=== PATIENT | male | born 1945 | race Caucasian/White ===

== ENCOUNTER → 2016-04-20 | Outpatient (CLI) | payer MEDICARE, OTHER ==
[~2016-04-20] MED LIST: ASPIRIN 81M81 MG/TA2 PO; CENTRUM SILVER1 CTB PO; FOLIC ACID 11 MG/TA1 PO; GLUCOPHAGE1000 MG PO; GLUCOTROL 5M5 MG/TAB PO; LEVOFLOXACIN500 MG PO; LIPITOR20 MG PO; REFRESH CELLUVI1 SOL OP; STOOL SOFTENER100 M1 PO; SYNTHROID0.2 MG/TAB PO; UROXATRAL10 M1 PO; ZESTRIL10 MG PO; ZOCOR20 MG PO; [UNRECOGNIZED DRUG - OTHER] PO
== END ==
LOC: SUN.DIA 10:30
DX: E11.9 Type 2 diabetes mellitus without complications (principal); Z79.84 Long term (current) use of oral hypoglycemic drugs; Z68.31 Body mass index [BMI] 31.0-31.9, adult; E66.9 Obesity, unspecified; Z71.3 Dietary counseling and surveillance; E78.5 Hyperlipidemia, unspecified; I10 Essential (primary) hypertension

== ENCOUNTER → 2016-07-20 | Outpatient (CLI) | payer MEDICARE, OTHER | LOC: SUN.DIA 11:45 | DX: E11.65 Type 2 diabetes mellitus with hyperglycemia (principal); E66.9 Obesity, unspecified; Z68.31 Body mass index [BMI] 31.0-31.9, adult; Z71.3 Dietary counseling and surveillance; E78.5 Hyperlipidemia, unspecified; I10 Essential (primary) hypertension; E03.9 Hypothyroidism, unspecified; G47.30 Sleep apnea, unspecified ==

== ENCOUNTER → 2017-01-18 | Outpatient (CLI) | payer MEDICARE, OTHER | LOC: SUN.DIA 09:33 | DX: E11.9 Type 2 diabetes mellitus without complications (principal); E78.5 Hyperlipidemia, unspecified; I10 Essential (primary) hypertension; E66.9 Obesity, unspecified; Z68.32 Body mass index [BMI] 32.0-32.9, adult; Z71.3 Dietary counseling and surveillance | CPT/HCPCS: G0108 ==

== ENCOUNTER → 2017-07-19 | Outpatient (CLI) | payer MEDICARE, OTHER | LOC: SUN.DIA 09:32 | DX: E11.9 Type 2 diabetes mellitus without complications (principal); E78.5 Hyperlipidemia, unspecified; I10 Essential (primary) hypertension; E66.9 Obesity, unspecified; Z68.31 Body mass index [BMI] 31.0-31.9, adult; Z71.3 Dietary counseling and surveillance; Z87.891 Personal history of nicotine dependence | CPT/HCPCS: G0108 ==

== ENCOUNTER 2017-09-28 14:39 | Day surgery (SDC) | payer MEDICARE, OTHER ==
[~2017-09-28] VITALS: Ht 185.4 cm; Wt 106.8 kg
[2017-09-28 15:18] VITALS: BP 132/55; PULSE 76; TEMP 98.1
[2017-09-28] MEDS ORDERED: [UNRECOGNIZED DRUG - OTHER] (15:23)
[2017-09-28] MEDS ORDERED: FOLIC ACID 40400 MCG PO (15:25)
[2017-09-28] MEDS ORDERED: FLONASEALLERGY NS (15:26)
[2017-09-28] MEDS ORDERED: PRINIVIL40 MG PO (15:27)
[2017-09-28] MEDS ORDERED: RELAFEN 50500 MG/TAB PO (15:28)
[2017-09-28] MEDS ORDERED: OMEGA-3 FISH1000 MG PO (15:29)
[2017-09-28] MEDS ORDERED: PRESERVISION1 SGL PO (15:30)
[2017-09-28] MEDS ORDERED: REFRESH TEARS 330 ML OP (15:31)
[2017-09-28] MEDS ORDERED: SYNTHROID0.075 MG/T PO (15:32)
[2017-09-28 17:42] VITALS: BP 115/59; PULSE 82; TEMP 98
[2017-09-28 17:57] VITALS: BP 132/55; PULSE 79
[2017-09-28] MEDS ORDERED: NORCO 325 MG-51 TAB PO (18:05)
[2017-09-28] MEDS ORDERED: PYRIDIUM 100MG100 MG PO (18:05)
[2017-09-28 18:12] VITALS: BP 143/61; PULSE 82
[2017-09-28 18:34] VITALS: BP 143/61; PULSE 72
[2017-09-28 18:56] VITALS: BP 137/65; PULSE 72
== END 2017-09-28 19:13 | disposition home or self-care (01) ==
LOC: SDCO 14:39
DX: N30.80 Other cystitis without hematuria (principal); N21.0 Calculus in bladder; E11.9 Type 2 diabetes mellitus without complications; I25.10 Atherosclerotic heart disease of native coronary artery without angina pectoris; I10 Essential (primary) hypertension; G47.30 Sleep apnea, unspecified; E03.9 Hypothyroidism, unspecified; Z79.82 Long term (current) use of aspirin; Z79.84 Long term (current) use of oral hypoglycemic drugs; Z87.891 Personal history of nicotine dependence; Z86.73 Personal history of transient ischemic attack (TIA), and cerebral infarction without residual deficits; Z83.3 Family history of diabetes mellitus; Z82.49 Family history of ischemic heart disease and other diseases of the circulatory system
CPT/HCPCS: J0690; J1100; J2405; J2704; J3010; J7030

== ENCOUNTER → 2017-12-20 | Outpatient (CLI) | payer MEDICARE, OTHER ==
[~2017-12-20] MED LIST changes: +FLONASEALLERGY NS; +FOLIC ACID 40400 MCG PO; +NORCO 325 MG-51 TAB PO; +OMEGA-3 FISH1000 MG PO; +PRESERVISION1 SGL PO; +PRINIVIL40 MG PO; +PYRIDIUM 100MG100 MG PO; +REFRESH TEARS 330 ML OP; +RELAFEN 50500 MG/TAB PO; +SYNTHROID0.075 MG/T PO; +[UNRECOGNIZED DRUG - OTHER]
== END ==
LOC: COL.VAS 07:55
DX: I07.1 Rheumatic tricuspid insufficiency (principal)

== ENCOUNTER → 2017-12-29 | Outpatient (CLI) | payer MEDICARE, OTHER | LOC: COL.RAD 08:54 | DX: Z13.6 Encounter for screening for cardiovascular disorders (principal) ==

== ENCOUNTER → 2018-01-17 | Outpatient (CLI) | payer MEDICARE, OTHER | LOC: SUN.DIA 09:27 | DX: E11.9 Type 2 diabetes mellitus without complications (principal); E78.5 Hyperlipidemia, unspecified; I10 Essential (primary) hypertension; E66.9 Obesity, unspecified | CPT/HCPCS: G0108 ==

== ENCOUNTER 2018-01-24 10:13 | Day surgery (SDC) | payer MEDICARE, OTHER ==
[2018-01-24] VITALS (212 sets, daily range): BP systolic 141–172; BP diastolic 74–90; PULSE 67–88; TEMP 98–98.5; O2SAT 76–100
[~2018-01-24] VITALS: Ht 185.6 cm; Wt 108.6 kg
[2018-01-24 10:58] LABS: HEMATOCRIT 41.4 % (42.0-52.0); HEMOGLOBIN 13.8 g/dl (13.5-18.0); MEAN CELL VOLUME 89 fl (80.0-100.0); MEAN CORPUSCULAR HEMOGLOBIN 30 pg (27.0-31.0); MEAN CORPUSCULAR HGB CONC 33 g/dl (33.0-37.0); MEAN PLATELET VOLUME 9.2 fl (7.4-10.4); PLATELET COUNT 187 K/mm3 (130-400); RED BLOOD COUNT 4.65 M/mm3 (4.20-5.60); REDCELL DISTRIBUTION WIDTH-CV 13.2 % (11.5-14.5)
[2018-01-24] MEDS ORDERED: SYNTHROID0.2 MG/TAB (11:05)
[2018-01-24 11:07] LABS: PROTHROMBIN TIME 10.9 SECONDS (9.7-12.8)
[2018-01-24 11:08] LABS: CALCIUM 8.8 mg/dL (8.4-10.2); CREATININE, serum 0.88 mg/dL (0.66-1.25); POTASSIUM 4.9 mmol/L (3.4-5.0)
[2018-01-25] VITALS (305 sets, daily range): BP systolic 125–144; BP diastolic 55–68; PULSE 68–79; TEMP 98–98.6; O2SAT 95–100
[2018-01-25 06:14] LABS: BASO % 0.6 % (0.0-2.0); EOS # 0.2 (0.0-0.7); EOS % 3.2 % (0-4.0); GRAN # 5.1 (1.4-6.5); GRAN % 74.6 % (42.2-75.2); HEMATOCRIT 41.2 % (42.0-52.0); HEMOGLOBIN 13.7 g/dl (13.5-18.0); LYMPH # 0.7 (1.2-3.4); LYMPH % 10.7 % (20.0-51.0); MEAN CELL VOLUME 88 fl (80.0-100.0); MEAN CORPUSCULAR HEMOGLOBIN 29 pg (27.0-31.0); MEAN CORPUSCULAR HGB CONC 33 g/dl (33.0-37.0); MEAN PLATELET VOLUME 9.5 fl (7.4-10.4); MONO # 0.7 (0.1-0.6); MONO % 10.3 % (1.7-9.3); PLATELET COUNT 191 K/mm3 (130-400); RED BLOOD COUNT 4.66 M/mm3 (4.20-5.60); REDCELL DISTRIBUTION WIDTH-CV 13.2 % (11.5-14.5)
[2018-01-25 06:32] LABS: CALCIUM 8.9 mg/dL (8.4-10.2); CREATININE, serum 0.77 mg/dL (0.66-1.25); POTASSIUM 4.2 mmol/L (3.4-5.0)
[2018-01-25] MEDS ORDERED: BRILINTA90 MG PO (09:23)
[2018-01-25] MEDS ORDERED: TOPROL XL 50MG50 MG PO (09:26)
== END 2018-01-25 11:04 | disposition home or self-care (01) ==
LOC: COL.CAR 10:13 → ICU 14:47 → COL.CAR 01-25 11:04
PROVIDERS: Internal Medicine Cardiovascular Disease
DX: I25.10 Atherosclerotic heart disease of native coronary artery without angina pectoris (principal); I49.3 Ventricular premature depolarization; R00.2 Palpitations; E11.9 Type 2 diabetes mellitus without complications; Z79.84 Long term (current) use of oral hypoglycemic drugs; Z79.899 Other long term (current) drug therapy; Z87.891 Personal history of nicotine dependence; E78.2 Mixed hyperlipidemia; Z86.73 Personal history of transient ischemic attack (TIA), and cerebral infarction without residual deficits; E07.9 Disorder of thyroid, unspecified; I10 Essential (primary) hypertension; G47.33 Obstructive sleep apnea (adult) (pediatric)
CPT/HCPCS: OP; C9600; J0583; J1644; J2250; J3010; Q9967

== ENCOUNTER → 2018-03-29 | Outpatient (CLI) | payer MEDICARE, OTHER ==
[~2018-03-29] MED LIST changes: +BRILINTA90 MG PO; +SYNTHROID0.2 MG/TAB; +TOPROL XL 50MG50 MG PO
== END ==
LOC: SUN.DIA 02-07 11:33
DX: E11.9 Type 2 diabetes mellitus without complications (principal); E66.9 Obesity, unspecified; E78.5 Hyperlipidemia, unspecified; I10 Essential (primary) hypertension
CPT/HCPCS: G0108

== ENCOUNTER 2018-04-14 08:01 | Outpatient (CLI) | payer MEDICARE, OTHER ==
[~2018-04-14] VITALS: Ht 185.5 cm; Wt 100.9 kg
[~2018-04-14 08:01] MED LIST changes: +PRINIVIL20 MG PO; -PRINIVIL40 MG PO; -[UNRECOGNIZED DRUG - OTHER]
[2018-04-14 08:53] VITALS: BP 115/66; PULSE 80; TEMP 97.7
[2018-04-14] MEDS ORDERED: EDEX IJ (09:04)
[2018-04-14] MEDS ORDERED: TOPROL XL 25MG25 MG PO (09:17)
[2018-04-14] MEDS ORDERED: NITROSTAT0.4 MG/TAB SL (09:20)
[2018-04-14] MEDS ORDERED: CEPHALEXIN500 M1 PO (09:57)
[2018-04-14 09:58] VITALS: BP 123/53; PULSE 77
--- NOTE | 2018-04-14 10:13 | NUR ---
Discharge instructions given to pt.Pt verbalizes understanding.Pt escorted out by this nurse.
== END 2018-04-14 10:14 | disposition home or self-care (01) ==
LOC: COL.CAR 08:01
DX: R55 Syncope and collapse (principal); R00.0 Tachycardia, unspecified; I25.10 Atherosclerotic heart disease of native coronary artery without angina pectoris; Z98.61 Coronary angioplasty status; E78.2 Mixed hyperlipidemia; I10 Essential (primary) hypertension; G47.33 Obstructive sleep apnea (adult) (pediatric); E11.9 Type 2 diabetes mellitus without complications; Z86.73 Personal history of transient ischemic attack (TIA), and cerebral infarction without residual deficits; Z79.82 Long term (current) use of aspirin; Z79.51 Long term (current) use of inhaled steroids; Z79.84 Long term (current) use of oral hypoglycemic drugs; Z87.891 Personal history of nicotine dependence; Z82.49 Family history of ischemic heart disease and other diseases of the circulatory system
CPT/HCPCS: 27124; C1764

== ENCOUNTER 2018-05-06 10:57 | Outpatient (RCR) | payer MEDICARE, OTHER ==
[~2018-05-06 10:57] MED LIST changes: +CEPHALEXIN500 M1 PO; +EDEX IJ; +NITROSTAT0.4 MG/TAB SL; +TOPROL XL 25MG25 MG PO
== END 2018-05-08 | disposition home or self-care (01) ==
LOC: COL.CR
DX: Z48.812 Encounter for surgical aftercare following surgery on the circulatory system (principal); Z95.5 Presence of coronary angioplasty implant and graft

== ENCOUNTER 2018-05-11 14:24 | Outpatient (RCR) | payer MEDICARE, OTHER | END 2018-08-07 | disposition home or self-care (01) | LOC: COL.CR | DX: Z48.812 Encounter for surgical aftercare following surgery on the circulatory system (principal); Z95.5 Presence of coronary angioplasty implant and graft ==

== ENCOUNTER → 2018-06-28 | Outpatient (CLI) | payer MEDICARE, OTHER | LOC: SUN.DIA 13:29 | DX: E11.9 Type 2 diabetes mellitus without complications (principal); E78.5 Hyperlipidemia, unspecified; I10 Essential (primary) hypertension; E66.9 Obesity, unspecified | CPT/HCPCS: G0108 ==

== ENCOUNTER → 2018-07-25 | Outpatient (CLI) | payer MEDICARE, OTHER | LOC: COL.RAD 10:48 | DX: R59.0 Localized enlarged lymph nodes (principal) ==

== ENCOUNTER → 2018-10-14 | Outpatient (CLI) | payer MEDICARE, OTHER | LOC: COL.RAD 07:58 | DX: N32.3 Diverticulum of bladder (principal); N40.1 Benign prostatic hyperplasia with lower urinary tract symptoms | CPT/HCPCS: Q9967 ==

== ENCOUNTER → 2018-12-26 | Outpatient (CLI) | payer MEDICARE, OTHER | LOC: DIA.ED 08:57 | DX: E11.9 Type 2 diabetes mellitus without complications (principal); I10 Essential (primary) hypertension; E66.9 Obesity, unspecified | CPT/HCPCS: G0270 ==

== ENCOUNTER → 2019-06-28 | Outpatient (CLI) | payer MEDICARE, OTHER | LOC: DIA.ED 09:00 | DX: E11.9 Type 2 diabetes mellitus without complications (principal); Z79.84 Long term (current) use of oral hypoglycemic drugs; E66.8 Other obesity; E78.5 Hyperlipidemia, unspecified; I10 Essential (primary) hypertension ==

== ENCOUNTER → 2019-12-27 | Outpatient (CLI) | payer MEDICARE, OTHER | LOC: DIA.ED | DX: E11.9 Type 2 diabetes mellitus without complications (principal); Z79.84 Long term (current) use of oral hypoglycemic drugs; E66.8 Other obesity; E78.5 Hyperlipidemia, unspecified; I10 Essential (primary) hypertension | CPT/HCPCS: G0270 ==

== ENCOUNTER → 2020-07-01 | Outpatient (CLI) | payer MEDICARE, OTHER ==
[~2020-07-01] MED LIST changes: +BETAPACE 80MG80 MG PO; +PHARMASSURE ZIN50 MG PO; +VITAMIN C500 MG PO
== END ==
LOC: DIA.ED 06-24 09:05
DX: E11.9 Type 2 diabetes mellitus without complications (principal); Z79.84 Long term (current) use of oral hypoglycemic drugs; E78.5 Hyperlipidemia, unspecified; I10 Essential (primary) hypertension; E66.8 Other obesity
CPT/HCPCS: G0270

== ENCOUNTER 2020-10-31 08:26 | Inpatient (IN) | payer MEDICARE, OTHER ==
[~2020-10-31] VITALS: Ht 185.7 cm; Wt 100.4 kg
[~2020-10-31 08:26] MED LIST changes: -BETAPACE 80MG80 MG PO; -PHARMASSURE ZIN50 MG PO; -VITAMIN C500 MG PO
[2020-11-12 09:49] VITALS: BP 132/58; PULSE 78; TEMP 98.2
[2020-11-12 10:21] LABS: EOS # 0.1 (0.0-0.7); GRAN % 75.1 % (42.2-75.2); LYMPH # 0.5 (1.2-3.4); LYMPH % 12.1 % (20.0-51.0); MEAN CELL VOLUME 91 fl (80.0-100.0); MEAN CORPUSCULAR HGB CONC 33 g/dl (33.0-37.0); MEAN PLATELET VOLUME 9.8 fl (7.4-10.4); MONO # 0.3 (0.1-0.6); MONO % 8.3 % (1.7-9.3); PLATELET COUNT 117 K/mm3 (130-400); RED BLOOD COUNT 3.01 M/mm3 (4.20-5.60); REDCELL DISTRIBUTION WIDTH-CV 13.2 % (11.5-14.5)
[2020-11-12 10:28] LABS: HEMATOCRIT 27.3 % (42.0-52.0); MEAN CORPUSCULAR HEMOGLOBIN 30 pg (27.0-31.0)
[2020-11-12 10:32] LABS: PROTHROMBIN TIME 10.7 SECONDS (9.7-12.8)
[2020-11-12] MEDS ORDERED: VITAMIN C500 MG PO (10:35)
[2020-11-12] MEDS ORDERED: PHARMASSURE ZIN50 MG PO (10:35)
[2020-11-12 10:36] LABS: ALBUMIN 3.9 gm/dL (3.5-5.0); BILIRUBIN,TOTAL 0.8 mg/dL (0.0-1.0); CALCIUM 8.8 mg/dL (8.4-10.2); CREATININE, serum 0.78 (0.66-1.25); MAGNESIUM 1.6 mg/dL (1.6-2.3); POTASSIUM 4.6 mmol/L (3.4-5.0); TOTAL PROTEIN 6.7 gm/dL (6.4-8.2)
[2020-11-12 12:36] VITALS: BP 121/55; PULSE 64; TEMP 98.7
[2020-11-12 15:39] VITALS: BP 120/56; PULSE 64; TEMP 98.6
--- NOTE | 2020-11-12 19:01 | NUR ---
Pt had uneventful day. Denied any pain, chest palpitations or dizziness. IV to L hand. POC discussed with patient who will have a Jennifer tomorrow. No needs at this time. Call light within reach.
--- NOTE | 2020-11-12 20:30 | NUR ---
Initial shift assessment done- very pleasant, No pain or SOB, sitting up in recliner, VSS, HR regular, Tele on. Requesting a snack before bed. NPO after MN for Junie.
[2020-11-12 20:34] VITALS: BP 120/56; PULSE 66; TEMP 98
[2020-11-13] VITALS (10 sets, daily range): BP systolic 105–128; BP diastolic 50–73; PULSE 62–76; TEMP 97.4–98.1
--- NOTE | 2020-11-13 04:51 | NUR ---
Quiet night- no requests, VSS slept fair.
[2020-11-13 07:07] LABS: BASO # 0.1 (0.0-0.2); EOS # 0.4 (0.0-0.7); EOS % 5.9 % (0-4.0); GRAN # 3.9 (1.4-6.5); GRAN % 64.8 % (42.2-75.2); HEMATOCRIT 41.7 % (42.0-52.0); LYMPH % 16.4 % (20.0-51.0); MEAN CELL VOLUME 90 fl (80.0-100.0); MEAN CORPUSCULAR HEMOGLOBIN 30 pg (27.0-31.0); MEAN CORPUSCULAR HGB CONC 34 g/dl (33.0-37.0); MEAN PLATELET VOLUME 9.5 fl (7.4-10.4); MONO # 0.7 (0.1-0.6); MONO % 11.4 % (1.7-9.3); PLATELET COUNT 202 K/mm3 (130-400); RED BLOOD COUNT 4.62 M/mm3 (4.20-5.60); REDCELL DISTRIBUTION WIDTH-CV 13.1 % (11.5-14.5)
[2020-11-13 07:18] LABS: CALCIUM 8.9 mg/dL (8.4-10.2); CREATININE, serum 0.78 (0.66-1.25); MAGNESIUM 1.9 mg/dL (1.6-2.3); POTASSIUM 4.5 mmol/L (3.4-5.0)
--- NOTE | 2020-11-13 08:40 | NUR ---
PT PLEASANT, AOX4, DENIES PAIN, ASESSMENT PERFORMED, MEDICATIONS GIVEN, NPO STATUS MAINTAINED, PT TAKEN DOWN FOR LEXISCAN
--- NOTE | 2020-11-13 13:53 | NUR ---
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 No needs right now.
--- NOTE | 2020-11-13 18:33 | NUR ---
UNEVENTFUL SHIFT, DENIES PAIN, TOOK MEDS, NO OTHER NEEDS
[2020-11-14 01:08] VITALS: BP 113/59; PULSE 63; TEMP 97.6
[2020-11-14 04:05] VITALS: BP 142/67; PULSE 65; TEMP 98
[2020-11-14 06:36] LABS: BASO # 0.1 (0.0-0.2); EOS # 0.4 (0.0-0.7); EOS % 5.2 % (0-4.0); GRAN # 4.8 (1.4-6.5); GRAN % 66.9 % (42.2-75.2); HEMOGLOBIN 15.6 g/dl (13.5-18.0); LYMPH # 1.1 (1.2-3.4); MEAN CELL VOLUME 90 fl (80.0-100.0); MEAN CORPUSCULAR HEMOGLOBIN 30 pg (27.0-31.0); MEAN CORPUSCULAR HGB CONC 33 g/dl (33.0-37.0); MEAN PLATELET VOLUME 9.6 fl (7.4-10.4); MONO # 0.7 (0.1-0.6); MONO % 10.1 % (1.7-9.3); PLATELET COUNT 217 K/mm3 (130-400)
[2020-11-14 06:39] LABS: CALCIUM 9.2 mg/dL (8.4-10.2); CREATININE, serum 0.88 (0.66-1.25); POTASSIUM 4.9 mmol/L (3.4-5.0)
[2020-11-14 08:28] VITALS: BP 123/58; PULSE 65; TEMP 98
--- NOTE | 2020-11-14 08:35 | NUR ---
VITALS OBTAINED, PT ASSESSED, PT EAGER FOR DISCHARGE, PT DENIES PAIN/SOB, PT AOX4, INDEPENDENT IN THE ROOM, NO OTHER NEEDS AT THIS TIME
[2020-11-14 11:53] VITALS: BP 123/62; PULSE 58; TEMP 97.5
[2020-11-14] MEDS ORDERED: BETAPACE 80MG80 MG PO (12:28)
[2020-11-14 12:36] VITALS: BP 120/57; PULSE 60; TEMP 97.5
--- NOTE | 2020-11-14 13:48 | NUR ---
PT ESCORTED OUT WITH PT AND ALL OF PT BELONGINGS. PERSCRIPTION CALLED IN TO [facility] PER PT REQUEST. NO OTHER NEEDS AT THIS TIME.
--- NOTE | 2020-11-14 14:04 | NUR ---
Primary nurse was assisted with [id number] patient care by [employer] [employer] [employer] ADN student Kimberly Dey and [employer] [employer] [employer] instructor Jonelle Horn MSN, RN
== END 2020-11-14 13:50 | disposition home or self-care (01) | DRG 310 ==
LOC: MEDICAL 11-12 08:25
PROVIDERS: Nurse Practitioner; ADMIT Internal Medicine Cardiovascular Disease
DX: I47.1 Supraventricular tachycardia (principal)
CPT/HCPCS: A9500; J2785

== ENCOUNTER → 2020-12-30 | Outpatient (CLI) | payer MEDICARE, OTHER ==
[~2020-12-30] MED LIST changes: +BETAPACE 80MG80 MG PO; +PHARMASSURE ZIN50 MG PO; +VITAMIN C500 MG PO
== END ==
LOC: DIA.ED 09:06
DX: E11.9 Type 2 diabetes mellitus without complications (principal); Z79.84 Long term (current) use of oral hypoglycemic drugs; E78.5 Hyperlipidemia, unspecified; I10 Essential (primary) hypertension
CPT/HCPCS: G0270

== ENCOUNTER → 2021-04-07 | Outpatient (CLI) | payer MEDICARE, OTHER | LOC: ZCOL.LAB 13:09 | DX: U07.1 COVID-19 (principal) ==

== ENCOUNTER → 2021-06-30 | Outpatient (CLI) | payer MEDICARE, OTHER | LOC: DIA.ED 10:56 | DX: E11.9 Type 2 diabetes mellitus without complications (principal); Z79.84 Long term (current) use of oral hypoglycemic drugs; I10 Essential (primary) hypertension; E78.5 Hyperlipidemia, unspecified | CPT/HCPCS: G0270 ==